=== PATIENT | male | born 1965 | race Caucasian/White ===

== ENCOUNTER → 2024-08-12 | Outpatient (CLI) | payer OTHER, SELFPAY ==
--- NOTE | 2024-08-12 06:54 | CT_ITS ---
STUDY: CT ABDOMEN AND PELVIS WITH CONTRAST REASON FOR EXAM: Male, 58 years old. History of renal carcinoma, flank pain RADIATION DOSAGE (If Supplied By Facility): CTDIvol = ( 14.27 ) mGy, DLP = ( 747.57 ) mGycm TECHNIQUE: Transaxial images were obtained from the dome of the diaphragm to the symphysis pubis without oral contrast. IV 100mL Isovue-300 was administered. Sagittal and coronal images were reconstructed. Individualized dose optimization techniques were used for this CT. COMPARISON: None. FINDINGS: The visualized lung bases are unremarkable. The visualized portions of the heart are within normal limits. There is decreased attenuation of the liver consistent with steatosis. Normal gallbladder and extrahepatic biliary system. Normal spleen. Normal pancreas. Normal bilateral adrenal glands. Cortical defect along the posterolateral aspect of the lower pole of the right kidney suggestive of prior partial nephrectomy. 2.5 mm nonobstructive calculus in the upper pole calyx of the left kidney as well as in the mid pole calyx of the left kidney. There is a small hiatal hernia. Normal small intestine. Moderate amount of fecal material is seen in the colon. The appendix is visualized and appears normal. Normal abdominal aorta. Normal inferior vena cava. Normal retroperitoneum. Normal urinary bladder. There is enlargement of the prostate gland. The prostate measures 3.6 cm x 4.2 cm. There is a left-sided inguinal hernia containing adipose tissue. Small benign-appearing bilateral inguinal lymph nodes. There are mild degenerative changes of the visualized lumbar spine. 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 CT/Abdomen/Pelvis WITH Contrast IMPRESSION: Cortical defect seen in the inferior posterolateral aspect of the right kidney suggestive prior partial nephrectomy. Nonobstructive left intrarenal calculi. Electronically Signed: Javi Quintero MD at 12:17 EST ,
[2024-08-12 07:20] LABS: CREATININE FINGERSTICK < 1.0 mg/dL (0.70-1.30); EGFR FINGERSTICK > 60.0000 mL/min (>60)
== END | disposition home or self-care (01) ==
LOC: CT 06:54
PROVIDERS: PCP Internal Medicine; Referring Provider Internal Medicine; Visit Provider Internal Medicine
DX: Z85.528 Personal history of other malignant neoplasm of kidney (principal)
CPT/HCPCS: 74177; Q9967